=== PATIENT | female | born 1970 | race Caucasian/White ===

== ENCOUNTER 2019-06-19 06:08 | Day surgery (SDC) | payer OTHER ==
[2019-06-18 11:10] VITALS: BMI 28.3
[2019-06-19] MEDS ORDERED: LIDOCAINE HCL 1%, 10 MG/ML (20ML VIAL) ONE (07:45)
--- NOTE | 2019-06-19 08:05 | HP ---
History & Physical Update - History History: No Change - Physical Physical: No Change - Assessment Assessment: No Change - Plan Plan: No Change
[2019-06-19] MEDS ORDERED: MIDAZOLAM HCL 2 MG/2 ML SINGLE DOSE VIAL ONE ×2 (08:07)
[2019-06-19] MEDS ORDERED: PROPOFOL 20 ML ONE ×2 (08:14)
[2019-06-19] MEDS ORDERED: SUCCINYLCHOLINE CHLORIDE 200 MG/10 ML SYRINGE ONE (08:14)
[2019-06-19] MEDS ORDERED: ceFAZolin SODIUM 1 GM VIAL IVPB ONE ×2 (08:20)
[2019-06-19] MEDS ORDERED: BUPIVACAINE HCL/PF 0.5% (5 MG/ML) 30 ML VIAL IJ ONE ×2 (08:27→08:30)
[2019-06-19] MEDS ORDERED: SEVOFLURANE 250 ML BTL ONE (08:35)
[2019-06-19] MEDS ORDERED: ACETAMINOPHEN 325 MG TABLET (FP) PO PRN ×2 (09:36→09:41)
--- NOTE | 2019-06-19 09:36 | OP ---
Operative Note - Note: Operative Date: 06/19/19 Pre-Operative Diagnosis: Symptomatic varicose veins both legs Operation: Ligation saphenofemoral junction, bilateral Findings: Dilated proximal GSV both sides Post-Operative Diagnosis: Same as Pre-op Surgeon: Mike Elizondo Anesthesiologist/[employer] OPERATOR: Corry Velasquez MD Anesthesia: General Estimated Blood Loss (mls): 10
[2019-06-19] MEDS ORDERED: oxyCODONE HCL 5 MG TABLET PO PRN ×2 (09:41→10:07)
[2019-06-19] MEDS ORDERED: PROMETHAZINE HCL 25 MG/1 ML VIAL IVPB PRN (10:07)
[2019-06-19] MEDS ORDERED: ONDANSETRON 4 MG/2 ML VIAL IVPUSH PRN (10:07)
[2019-06-19] MEDS ORDERED: KETOROLAC TROMETHAMINE 30 MG/1 ML VIAL IVPUSH ONE (10:08)
[2019-06-19] MEDS ORDERED: LACTATED RINGERS SOLUTION 1,000 ML IV SCH (10:15)
[2019-06-19 12:31] VITALS: BP 134/76; PULSE 62; TEMP 98.1
--- NOTE | 2019-06-19 22:38 | OP ---
DATE OF OPERATION: 06/19/2019 SURGEON: Mike Braxton MD PROCEDURE: Ligation of saphenofemoral junction, bilateral. PREOPERATIVE DIAGNOSIS: Painful varicose veins, both legs. POSTOPERATIVE DIAGNOSIS: Painful varicose veins, both legs. ANESTHESIA: General. ANESTHESIOLOGIST: AUBREY Ayala OPERATIVE FINDINGS: The saphenofemoral junction and proximal greater saphenous veins were dilated on both sides. OPERATIVE PROCEDURE: Following routine patient identification, general anesthesia was induced. Both groins were prepped with ChloraPrep. Timeout was performed. Next, 0.5% Marcaine was infiltrated in the skin in the planned incision lines. Transverse incisions were made over the saphenofemoral junction which was marked preoperatively with duplex imaging. Subcutaneous tissues were divided using cautery. The proximal greater saphenous vein was mobilized, and all side branches were ligated with silk ties and divided. The saphenofemoral junction was then doubly ligated with 2-0 silk. The proximal portion of the saphenous vein was then gently retracted and dissected distally for approximately 3 cm. The vein was then ligated at this level and the proximal portion amputated. The wounds were closed with interrupted suture of 3-0 Vicryl and subcuticular suture of 4-0 Biosyn. Sterile dressings were applied, and the patient was taken to the recovery room in stable condition. MIKE BRAXTON M.D. DANA/[id number]
== END 2019-06-19 12:10 | disposition home or self-care (01) ==
LOC: JASU-SURG 06:08
PROVIDERS: ATTEND Surgery
PROC: 06LP0ZZ Occlusion of Right Saphenous Vein, Open Approach (ICD-10-PCS; 2019-06-19)
PROC: 06LQ0ZZ Occlusion of Left Saphenous Vein, Open Approach (ICD-10-PCS; principal; 2019-06-19 08:00)
DX: I83.813 Varicose veins of bilateral lower extremities with pain (principal)
CPT/HCPCS: 84703; 88304-TC; 94760